=== PATIENT | male | born 1980 | race Two or more races ===

== ENCOUNTER 2019-04-13 02:27 | Emergency (ER) | payer MEDICAID, OTHER ==
[~2019-04-13] VITALS: Ht 180.3 cm; Wt 97.5 kg
[~2019-04-13 02:27] MED LIST: ALBUPOW26
[2019-04-13] MEDS ORDERED: DILTIAZEM HCL 60 MG TAB PO ONE (04:15)
[2019-04-13] MEDS ORDERED: DILTIAZEM HCL 25 MG/5 ML VIAL IV ONE (04:15)
[2019-04-13] MEDS ORDERED: DILTIAZEM 125mg/125ml BAG KIT 100 ML IV SCH (05:02)
[2019-04-13] MEDS ORDERED: DILTIAZEM 125mg/125ml BAG KIT 125 ML IV ONE (05:12)
[2019-04-13 05:21] LABS: Albumin 4.1 g/dL (3.4-5.0); Anion Gap 13 (5-15); Blood Urea Nitrogen 12 mg/dL (7-18); Calcium 8.9 mg/dL (8.5-10.1); Carbon Dioxide 20 mmol/L (21-32); Chloride 105 mmol/L (98-107); Glucose 286 mg/dL (74-106); Sodium 138 mmol/L (136-145)
[2019-04-13 05:25] LABS: Urine Bacteria None Seen /hpf (None Seen); Urine WBC None Seen /hpf (0 - 3)
[2019-04-13 05:29] LABS: Alanine Aminotransferase 95 U/L (16-61); Alkaline Phosphatase 117 U/L (45-117); Aspartate Aminotransferase 59 U/L (15-37); Bilirubin, Total 0.4 mg/dL (0.2-1.0); GFR African American 140 mL/min; GFR Non-African American 116 mL/min; Total Protein 8.5 g/dL (6.4-8.2)
[2019-04-13 05:34] LABS: Eosinophils # (auto) 0.9 uL; Monocytes # (auto) 0.7 uL; Neutrophils # (auto) 2.4 uL
[2019-04-13 05:35] LABS: Basophils # (auto) 0.2 uL; Basophils % (auto) 2.2 % (0.0-2.0); Eosinophils % (auto) 10.7 % (0.0-7.0); Hematocrit 50.5 % (41.0-53.0); Hemoglobin 17.7 g/dL (13.5-17.5); Lymphocytes # (auto) 4.2 uL; Lymphocytes % (auto) 50.3 % (10.0-50.0); Mean Corpuscular Hemoglobin 33.2 pg (28.0-32.0); Mean Corpuscular Volume 94.9 fL (80.0-100.0); Monocytes % (auto) 7.9 % (0.0-12.0); Neutrophils % (auto) 28.9 % (37.0-80.0); Nucleated Red Blood Cells % 0.2 %; Platelet Count (auto) 372 10^3/uL (140-450); Red Blood Cells 5.32 10^6/uL (4.5-5.90); Red Cell Distribution Width 12.8 % (11.8-14.3); White Blood Cell 8.3 10^3/uL (4.4-10.8)
[2019-04-13 05:39] LABS: Urine Specific Gravity 1.015 (1.001-1.035)
[2019-04-13 05:40] LABS: Urine Blood Normal /uL (Negative)
[2019-04-13 11:35] VITALS: BP 153/87
[2019-04-13] MEDS ORDERED: DILTIAZEM HCL 50 MG/10 ML VIAL IV ONE (12:05)
== END 2019-04-13 11:58 | disposition short-term general hospital (02) ==
LOC: ER 02:27
DX: I48.91 Unspecified atrial fibrillation (principal); E11.9 Type 2 diabetes mellitus without complications; J45.909 Unspecified asthma, uncomplicated
CPT/HCPCS: 36415; 71045; 80053; 81001; 82962; 83880; 84484; 85025; 92960; 93005; 96365; 96366; 96376

== ENCOUNTER 2024-02-23 07:10 | Inpatient (IN) | payer MEDICAID ==
[~2024-02-23] VITALS: Ht 172.7 cm; Wt 86.3 kg
[~2024-02-23 07:10] MED LIST changes: +ALBU108A5 INH; +BUDE1AER16 INH; +DULO1CAP5 PO; +EMPA1TAB3 PO; +HYDR1TAB97 PO; +LISI2.5T47 PO; +OMEP-448 PO; +PRE5T PO; +ROSU10TA64 PO
[2024-02-23] MEDS: AMIODARONE BOLUS KIT 100 ML IV ONE (07:45)
[2024-02-23] MEDS: AMIODARONE 450mg/250ml AE 250 ML IV SCH (07:45)
--- NOTE | 2024-02-23 07:49 | ED.PDOC ---
GI ASSESSMENT HPI Comments 44M BIBA w/ no prior Hx associated to the c/c of ABD pain. Pt reports on having epigastric pain which radiate to the LUQ/RUQ since, 0300. Pt states as well as being unable to take a deep breathe as well. Pt notes that he has been constipated for 3 days and has been having /D. PMHx of Asthma, DM and AFIB. Family Hx of DM, Heart Yon and HTN. Denies chills, fever, N/V, SOB, CP or other associated symptoms, modifiers, or recent injuries or sick contact at this time. 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, Medications, Allergies Allergies: Coded Allergies: NO KNOWN ALLERGIES (Unverified , 02/27/12) Home Meds Reported Medications Albuterol (Albuterol) Pow 02/27/12 Information Source: Patient Mode of Arrival: EMS Timing: Hours Duration: Since onset, Hours Prehospital treatment: None Quality: Aching Vomitus: None Stool: Loose Severity: Moderate Recent: None Recent Hx of: Diabetes Pain Location: Epigastric, RUQ, LUQ Associated sign and symptoms: Diarrhea, Constipation, Abdominal Pain Past Medical History PAST MEDICAL HISTORY: AFIB, Asthma, DM Surgical History: Denies all surgeries Family History Family History: Family hx of DM, Family hx of heart yon, Family hx of HTN Social History Smoker: Non-Smoker Alcohol: Denies ETOH Use Drugs: Denies Drug Use Lives In: Home Constitutional: denies: chills, diaphoresis, fatigue, fever, malaise, sweats, weakness, others EENTM: denies: blurred vision, double vision, ear bleeding, ear discharge, ear drainage, ear pain, ear ringing, eye pain, eye redness, hearing loss, mouth pain, mouth swelling, nasal discharge, nose bleeding, nose congestion, nose pain, photophobia, tearing, throat pain, throat swelling, voice changes, others Respiratory: denies: cough, hemoptysis, orthopnea, SOB at rest, shortness of breath, SOB with excertion, stridor, wheezing, others Cardiovascular: denies: chest pain, dizzy spells, diaphoresis, Dyspnea on exertion, edema, irregular heart beat, left arm pain, lightheadedness, palpitations, PND, syncope, others Gastrointestinal: reports: abdominal pain, constipated, diarrhea; denies: abdomen distended, blood streaked bowels, dysphagia, difficulty swallowing, hematemesis, melena, nausea, poor appetite, poor fluid intake, rectal bleeding, rectal pain, vomiting, others Genitourinary: denies: burning, dysuria, flank pain, frequency, hematuria, incontinence, penile discharge, penile sore, pain, testicle pain, testicle swelling, urgency, others Neurological: denies: dizziness, fainting, headache, left sided numbness, left sided weakness, numbness, paresthesia, pre-existing deficit, right sided numbness, right sided weakness, seizure, speech problems, tingling, tremors, weakness, others Musculoskeletal: denies: back pain, gout, joint pain, joint swelling, muscle pain, muscle stiffness, neck pain, others Integumetry: denies: bruises, change in color, change in hair/nails, dryness, laceration, lesions, lumps, rash, wounds, others Allergic/Immunocompromised: denies: Difficulty Healing, Frequent Infections, Hives, Itching, others Hematologic/Lymphatic: denies: anemia, blood clots, easy bleeding, easy bruising, swollen glands, others Endocrine: denies: excessive hunger, excessive sweating, excessive thirst, excessive urination, flushing, intolerance to cold, intolerance to heat, unexplained weight gain, unexplained weight loss, others Psychiatric: denies: anxiety, bipolar disorder, depression, hopeless, panic disorder, schizophrenia, sleepless, suicidal, others All Other Systems: Reviewed and Negative Physical Exam General Appearance: Moderate Distress, Normal HEENT: Normal ENT Inspection, Pharynx Normal, TMs Normal Neck: Full Range of Motion, Non-Tender, Normal, Normal Inspection Respiratory: Chest Non-Tender, Lungs Clear, No Accessory Muscle Use, No Respiratory Distress, Normal Breath Sounds Cardiovascular: Irregular, No Edema, No JVD, No Murmur, No Gallop, Normal Peripheral Pulses, Tachycardia Breast Exam: Deferred Gastrointestinal: No Organomegaly, Non Tender, No Pulsatile Mass, Normal Bowel Sounds, Soft Genitalia: Deferred Pelvic: Deferred Rectal: Deferred Extremities: No calf tenderness, Normal capillary refill, Normal inspection, Normal range of motion, Non-tender, No pedal edema Musculoskeletal : Apperance: Normal Neurologic: Alert, program coordinator executive education II-XII nml as Tested, No Motor Deficits, Normal Affect, Normal Mood, No Sensory Deficits Cerebellar Function: NOT DONE Reflexes: NOT DONE Skin: Dry, Normal Color, Warm Peripheral Pulses: 3+ Radial (R), 3+ Radial (L) Lymphatic: No Adenopathy Was a procedure done? Was a procedure done?: No GI differential Dx Differential Diagnosis: Diverticular disease, Esophagitis, Gastritis/PUD, Gastroenteritis X-Ray, Labs, Meds, VS Vital Signs Date Time Temp Pulse Resp B/P (MAP) Pulse Ox O2 Delivery O2 Flow Rate FiO2 02/23/24 08:43 113 17 136/89 02/23/24 08:37 114 02/23/24 08:13 116 22 125/88 02/23/24 07:13 98.9 120 24 124/84 (97) 100 Lab Test 02/23/24 09:20 02/23/24 08:22 Range/Units Lactic Acid Level 4.0 *H 0.4-2.0 mmol/L Troponin I High Sensitivity < 3 L < 3 L </=54 ng/L White Blood Count 22.7 H 4.4-10.8 10^3/uL Red Blood Count 6.53 H 4.5-5.90 10^6/uL Hemoglobin 20.4 H 13.5-17.5 g/dL Hematocrit 60.4 H 41.0-53.0 % Mean Corpuscular Volume 92.5 80.0-100.0 fL Mean Corpuscular Hemoglobin 31.3 28.0-32.0 pg Mean Corpuscular Hemoglobin Concent 33.8 32.0-36.0 g/dL Red Cell Distribution Width 14.0 11.8-14.3 % Platelet Count 326 140-450 10^3/uL Mean Platelet Volume 8.6 6.9-10.8 fL Neutrophils (%) (Auto) 84.4 H 37.0-80.0 % Lymphocytes (%) (Auto) 8.0 L 10.0-50.0 % Monocytes (%) (Auto) 6.0 0.0-12.0 % Eosinophils (%) (Auto) 1.4 0.0-7.0 % Basophils (%) (Auto) 0.2 0.0-2.0 % Neutrophils # (Auto) 19.2 H 1.6-8.6 10 ^3/uL Lymphocytes # (Auto) 1.8 0.4-5.4 10 ^3/uL Monocytes # (Auto) 1.4 H 0-1.3 10 ^3/uL Eosinophils # (Auto) 0.3 0-0.8 10 ^3/uL Basophils # (Auto) 0 0-0.2 10 ^3/uL Nucleated Red Blood Cells 0.1 % Sodium Level 137 136-145 mmol/L Potassium Level 3.9 3.5-5.1 mmol/L Chloride Level 101 98-107 mmol/L Carbon Dioxide Level 21 20-31 mmol/L Anion Gap 15 5-15 Blood Urea Nitrogen 12 9-23 mg/dL Creatinine 1.15 0.700-1.30 mg/dL Glomerular Filtration Rate Calc 81 >90 mL/min BUN/Creatinine Ratio 10.4 10.0-20.0 Serum Glucose 168 H 74-106 mg/dL Calcium Level 11.2 H 8.7-10.4 mg/dL Current Medications Medications (Trade) Dose Ordered Sig/Sarah Route Start Time Stop Time Status Last Admin Morphine Sulfate 4 mg ONCE ONCE IV 02/23/24 07:45 02/23/24 07:46 DC 02/23/24 08:13 Ondansetron HCl (Zofran) 4 mg ONCE ONCE IV 02/23/24 07:45 02/23/24 07:46 DC 02/23/24 08:13 Amiodarone HCl 250 ml @ 33.333 mls/ hr Q7H30M IV 02/23/24 07:45 02/23/24 13:44 02/23/24 07:45 Piperacillin Sod/ Tazobactam Sod 100 ml @ 100 mls/hr ONCE ONCE IV 02/23/24 09:15 02/23/24 10:14 DC 02/23/24 09:15 Metronidazole 100 ml @ 100 mls/hr ONCE ONCE IV 02/23/24 09:15 02/23/24 10:14 DC 02/23/24 09:15 Sodium Chloride 1,000 ml @ 1,000 mls/hr Q1H ONCE IV 02/23/24 10:15 02/23/24 11:14 02/23/24 10:16 Sodium Chloride 1,000 ml @ 150 mls/hr Q6H40M ONCE IV 02/23/24 10:15 02/23/24 16:54 02/23/24 10:16 Patient alert. Complaining of abdominal pain. Vitals stable. Answering questions. Tachycardia. Irregular RR interval. History of atrial fibrillation. Establish intravenous access. Was given fluids. Was given morphine. Was given Zofran. WBC elevated. Hemoglobin elevated. Sepsis. Unstable for transfer. Explained to the patient. Continue cardiac monitoring. [place] approved inpatient admission [id number]. Time of 1ST Reevaluation: 07:45 Reevaluation 1ST: Unchanged Patient Education/Counseling: Diagnosis, Treatment, Prognosis Family Education/Counseling: No Family Present Departure 1 Departure Time of Disposition: 09:01 Impression: Primary Impression: Acute abdominal pain Additional Impressions: Atrial fibrillation Qualified Codes: I48.91 - Unspecified atrial fibrillation Sepsis Qualified Codes: A41.9 - Sepsis, unspecified organism Disposition: ADMITTED INPATIENT Admit to: Med Surg Condition: Guarded Critical Care Note Critical Care Time?: Yes (45 min-critical care time only) Stability Stability form required: No Heart Score Heart Score: Heart Score Response (Comments) Value History Slightly Suspicious 0 EKG Normal 0 Age <45 0 Risk Factors 1 or 2 risk factors 1 Troponin Normal limit 0 Total 1 I personally scribed for LIAN MELCHOR MD ([email or web address]) on 02/23/24 at 07:49. Electronically submitted by Conrad Juarez ([email or web address]). LIAN MELCHOR MD Feb 23, 2024 07:49
[2024-02-23] MEDS: ONDANSETRON HCL 4 MG/2 ML VIAL IV ONE (08:13)
[2024-02-23] MEDS: MORPHINE SULFATE 4 MG/ML SYR/VIAL IV ONE (08:13)
--- NOTE | 2024-02-23 08:39 | ECG ---
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
[2024-02-23 08:46] LABS: Basophils # (auto) 0 10 ^3/uL (0-0.2); Mean Corpuscular Hgb Conc. 33.8 g/dL (32.0-36.0)
[2024-02-23 08:47] LABS: Basophils % (auto) 0.2 % (0.0-2.0); Eosinophils # (auto) 0.3 10 ^3/uL (0-0.8); Eosinophils % (auto) 1.4 % (0.0-7.0); Hemoglobin 20.4 g/dL (13.5-17.5); Lymphocytes # (auto) 1.8 10 ^3/uL (0.4-5.4); Mean Corpuscular Hemoglobin 31.3 pg (28.0-32.0); Mean Corpuscular Volume 92.5 fL (80.0-100.0); Monocytes # (auto) 1.4 10 ^3/uL (0-1.3); Neutrophils # (auto) 19.2 10 ^3/uL (1.6-8.6); Neutrophils % (auto) 84.4 % (37.0-80.0); Nucleated Red Blood Cells % 0.1 %; Platelet Count (auto) 326 10^3/uL (140-450); Red Blood Cells 6.53 10^6/uL (4.5-5.90); White Blood Cell 22.7 10^3/uL (4.4-10.8)
[2024-02-23 08:58] LABS: Hematocrit 60.4 % (41.0-53.0)
[2024-02-23] MEDS: PIPERACILLIN-TAZOB 3.375GM 100 ML IV ONE (09:15)
[2024-02-23] MEDS: metroNIDAZOLE 500MG/100ML 100 ML IV ONE (09:15)
[2024-02-23 09:17] LABS: Chloride 101 mmol/L (98-107); Potassium 3.9 mmol/L (3.5-5.1); Sodium 137 mmol/L (136-145)
[2024-02-23 09:18] LABS: Anion Gap 15 (5-15); Calcium 11.2 mg/dL (8.7-10.4); Carbon Dioxide 21 mmol/L (20-31)
[2024-02-23 09:23] LABS: BUN/Creatinine Ratio 10.4 (10.0-20.0); Blood Urea Nitrogen 12 mg/dL (9-23); Glucose 168 mg/dL (74-106)
--- NOTE | 2024-02-23 09:58 | DVH ---
Procedure: CT CT AB PEL WO CON-NO ORAL OR IV 02/23/2024 09:06 AM Indication: Abdominal pain. Colitis versus appendicitis. Comparison Study: None available at time of dictation. Technique: Axial images were obtained and reformatted in coronal and sagittal planes. All CT scans at this medical facility are performed using dose modulation techniques as appropriate t o a performed exam including the following: Automated exposure control was utilized; adjustment of th e MA and/or KV according to patient size; and use of iterative reconstruction technique. CT Dose: CTDI volume is 18.41 mGy. Dose-length product is 968.93 mGy*cm FINDINGS: Lower Chest: Unremarkable. Hepatobiliary: Hepatomegaly and hepatic steatosis. Cholelithiasis. No gallbladder wall edema. No int rahepatic or extrahepatic ductal dilatation. Spleen: Unremarkable. Pancreas: Unremarkable. Adrenal Glands: Unremarkable. tract: The kidneys are normal in size bilaterally without hydronephrosis . A 2 mm nonobstructing s tone is seen midpole of the right kidney. Partially exophytic subcentimeter cyst arising from latera l cortex of the midpole of the left kidney that is incompletely evaluated in this unenhanced study. The urinary bladder is unremarkable. GI tract: The stomach is grossly normal in appearance. Fluid-filled nondistended small bowel loops th roughout the abdomen. No evidence of small bowel obstruction. The large bowel is unremarkable. The a ppendix is normal. Lymphatics: No mesenteric, retroperitoneal or periportal lymphadenopathy. Vasculature: The abdominal aorta is normal in in caliber. Pelvic Organs: Unremarkable Bones/soft tissues: No acute abnormality. Other: None. IMPRESSION: 1. No evidence of colitis or appendicitis. 2. Nondistended fluid-filled small bowel loops throughout the abdomen may represent ileus or gastroen teritis. 3. A 2 mm nonobstructive right renal stone is seen. 4. Subcentimeter left renal that is incompletely evaluated on this unenhanced study. 5. Cholelithiasis without cholecystitis. 6. Hepatic steatosis and hepatomegaly.
[2024-02-23 10:00] VITALS: PULSE 113; RESP 19; O2SAT 95
[2024-02-23] MEDS: SODIUM CHLORIDE 0.9% 1,000 ML IV ONE ×3 (10:16→14:00)
[2024-02-23] MEDS ORDERED: ONDANSETRON HCL 4 MG/2 ML VIAL IV PRN (14:00)
[2024-02-23] MEDS ORDERED: DOCUSATE SOD 100 MG CAP PO PRN (14:00)
[2024-02-23] MEDS ORDERED: TEMAZEPAM 15 MG CAP PO PRN (14:00)
[2024-02-23] MEDS ORDERED: ALBUTEROL SULF 2.5 MG/0.5ML(0.5%) NEB SOLN NEB PRN (14:00)
[2024-02-23] MEDS ORDERED: LORazepam 0.5 MG TAB PO PRN (14:00)
[2024-02-23] MEDS ORDERED: HYDROcodone-ACET 5/325MG TAB PO PRN (14:00)
[2024-02-23] MEDS ORDERED: DEXTROSE (50%) 50ML SYRG IV PRN (14:00)
[2024-02-23 14:21] LABS: Urine Bacteria None Seen /hpf (None Seen)
[2024-02-23 14:36] LABS: Urine Blood Negative /uL (Negative); Urine Clarity Clear (Clear); Urine Color Yellow (Yellow); Urine Protein, UAD Negative (Negative); Urine Specific Gravity 1.043 (1.001-1.035); Urine Urobilinogen 4 mg/dL (Negative); Urine WBC 1 /hpf (0 - 3)
--- NOTE | 2024-02-23 14:39 | DVHHP2 ---
History of Present Illness Reason for Visit: Abdominal pain History of Present Illness 44 yo obese male afib, dm, htn , asthma comes with constipation abdominal pain and fevers patient has been sick for a few days got to the point where he had extreme weakness and couldnt tolerate it and manage at home at the ed patient was shown to have fevers pain dehydration and signs of constipation patient with elevated white count and acute signs of infection for admission and further evaluation Cardiovascular: AFIB, HTN GI: Constipation Renal/: UTI Endocrine: Diabetes Review of Systems Constitutional: Yes: Fever, Weakness, Malaise; No: Chills, Sweats, Other Eyes: No: Pain, Vision change, Conjunctivae inflammation, Eyelid inflammation, Other, Redness ENT: No: Ear pain, Ear discharge, Nose pain, Nose discharge, Nose congestion, Mouth pain, Mouth swelling, Throat pain, Throat swelling, Other Respiratory: No: Cough, Dry, Shortness of breath, SOB with excertion, Wheezing, Hemoptysis, Pleuritic Pain, Sputum, Wheezing, Other Cardiovascular: No: Chest Pain, Palpitations, Orthopnea, Paroxysmal Noc. Dyspnea, Edema, Lt Headedness, Other Gastrointestinal: Nausea, Vomiting, Abdominal Pain, Constipation; No: Diarrhea, Melena, Hematochezia, Other Genitourinary: No Dysuria, No Frequency, No Incontinence, No Hematuria, No Retention, No Other Musculoskeletal: No: other, neck pain, shoulder pain, arm pain, back pain, hand pain, leg pain, foot pain Skin: No: Rash, Lesions, Jaundice, Bruising, Other Neurological: No: Weakness, Numbness, Incoordination, Change in speech, Confusion, Seizures, Other Allergies: Coded Allergies: NO KNOWN ALLERGIES (Unverified , 02/27/12) Medications Current Medications Medications Dose Ordered Sig/Sarah Route Start Time Stop Time Status Last Admin Dose Admin Piperacillin Sod/ Tazobactam Sod 100 ml @ 25 mls/hr Q8H IV 02/23/24 17:00 Ondansetron HCl 4 mg Q6HPRN PRN IV 02/23/24 14:00 UNV Diagnostic Test (Pha) 1 strip ACHS 02/23/24 17:00 Insulin Human Regular HS SC 02/23/24 22:00 Insulin Human Regular AC SC 02/23/24 17:00 Dextrose 50 ml UD PRN IV 02/23/24 14:00 Albuterol 2.5 mg Q4HWA PRN NEB 02/23/24 14:00 Lorazepam 0.5 mg Q6HP PRN PO 02/23/24 14:00 Docusate Sodium 100 mg BIDPRN PRN PO 02/23/24 14:00 Acetaminophen 650 mg Q6HP PRN PO 02/23/24 14:00 Temazepam 15 mg QHSP PRN PO 02/23/24 14:00 Acetaminophen/ Hydrocodone Bitart 1 tab Q4HP PRN PO 02/23/24 14:00 Ondansetron HCl 4 mg Q4HP PRN IV 02/23/24 14:00 UNV Morphine Sulfate 2 mg Q4HPRN PRN IV 02/23/24 14:00 Lactulose 30 ml Q8HR PO 02/23/24 22:00 UNV Exam Vital Signs Vital Signs Date Time Temp Pulse Resp B/P (MAP) Pulse Ox O2 Delivery O2 Flow Rate FiO2 02/23/24 08:43 113 17 136/89 02/23/24 07:13 98.9 100 General Appearance: Alert, Oriented X3, Cooperative HEENT: Atraumatic, PERRLA Respiratory: Clear to auscultation, Normal air movement Cardiovascular: Regular rate, Normal S1, Normal S2 Abdominal: Other (bowel distrention tenderness ttp ) Extremities: No clubbing, No cyanosis Skin: No rashes, No breakdown, No significant lesion Neuro: Normal gait, Normal speech Labs/Xrays Labs Test 02/23/24 14:17 02/23/24 11:40 02/23/24 09:20 02/23/24 08:22 Range/Units Lactic Acid Level 3.3 *H 0.4-2.0 mmol/L Troponin I High Sensitivity < 3 L </=54 ng/L White Blood Count 22.7 H 4.4-10.8 10^3/uL Red Blood Count 6.53 H 4.5-5.90 10^6/uL Hemoglobin 20.4 H 13.5-17.5 g/dL Hematocrit 60.4 H 41.0-53.0 % Mean Corpuscular Volume 92.5 80.0-100.0 fL Mean Corpuscular Hemoglobin 31.3 28.0-32.0 pg Mean Corpuscular Hemoglobin Concent 33.8 32.0-36.0 g/dL Red Cell Distribution Width 14.0 11.8-14.3 % Platelet Count 326 140-450 10^3/uL Mean Platelet Volume 8.6 6.9-10.8 fL Neutrophils (%) (Auto) 84.4 H 37.0-80.0 % Lymphocytes (%) (Auto) 8.0 L 10.0-50.0 % Monocytes (%) (Auto) 6.0 0.0-12.0 % Eosinophils (%) (Auto) 1.4 0.0-7.0 % Basophils (%) (Auto) 0.2 0.0-2.0 % Neutrophils # (Auto) 19.2 H 1.6-8.6 10 ^3/uL Lymphocytes # (Auto) 1.8 0.4-5.4 10 ^3/uL Monocytes # (Auto) 1.4 H 0-1.3 10 ^3/uL Eosinophils # (Auto) 0.3 0-0.8 10 ^3/uL Basophils # (Auto) 0 0-0.2 10 ^3/uL Nucleated Red Blood Cells 0.1 % Sodium Level 137 136-145 mmol/L Potassium Level 3.9 3.5-5.1 mmol/L Chloride Level 101 98-107 mmol/L Carbon Dioxide Level 21 20-31 mmol/L Anion Gap 15 5-15 Blood Urea Nitrogen 12 9-23 mg/dL Creatinine 1.15 0.700-1.30 mg/dL Glomerular Filtration Rate Calc 81 >90 mL/min BUN/Creatinine Ratio 10.4 10.0-20.0 Serum Glucose 168 H 74-106 mg/dL Calcium Level 11.2 H 8.7-10.4 mg/dL Assessment/Plan Assessment/Plan Admit to Tele Acute on chronic A-fib exacerbated in the setting in acute infection currently looking for rate control with amiodarone drip cardio consult if no improvement with improvement of infection Abdominal pain Gastroenteritis infectious suspected zosyn q8h IV abx monitor for improvement with WBC monitoring prn meds for pain family history of cancer in mother and father colonoscopy outpatient highly recommended lactic acid elevated monitor closely DM mild hyperglycemia iss while in patient takes Januvia at home Plan discussed with: Patient My Orders Orders - LEDA MARCUM MD Procedure Category Date Status Time Piperacillin-Tazob PHA 11/10/24 In Process 3.375gm (Zosyn 3.375g 17:00 Sodium Chloride 0.9% PHA 02/23/24 In Process 14:00 Ondansetron Hcl PHA 02/23/24 Logged (Zofran) 14:00 Glucose Blood PHA 02/23/24 In Process (Accu-Chek Comfort 17:00 Insulin R (Human) PHA 02/23/24 In Process (Insulin R) 22:00 Insulin R (Human) PHA 02/23/24 In Process (Insulin R) 17:00 Dextrose 50% Syringe PHA 02/23/24 In Process 14:00 Albuterol Medneb PHA 02/23/24 In Process (Ventolin Medneb) 14:00 Admit ADMIT 02/23/24 Transmitted 13:46 Code Status CODE 02/23/24 Transmitted 13:46 Vital Signs ARIELA 02/23/24 In Process 13:46 Review Orders With [facility] 02/23/24 In Process Adm. 13:46 Lorazepam Tablet PHA 02/23/24 In Process (Ativan Tablet) 14:00 Docusate Sodium PHA 02/23/24 In Process Capsule (Colace 14:00 Acetaminophen Tablet PHA 02/23/24 In Process (Tylenol Tablet) 14:00 Temazepam (Restoril) PHA 02/23/24 In Process 14:00 Notify Of Changes [facility] 02/23/24 In Process From Base 13:46 Advance Directive ARIELA 02/23/24 In Process 13:46 Basic Metabolic Panel LAB 02/24/24 Verified 04:00 Complete Blood Count LAB 02/24/24 Verified 04:00 Patient Condition ORDERS 02/23/24 Transmitted 13:46 Allergies ARIELA 02/23/24 In Process 13:46 Hydrocodone-Acet PHA 02/23/24 In Process 5/325mg Tab ([place] 14:00 Ondansetron Hcl PHA 02/23/24 Logged (Zofran) 14:00 Morphine Sulfate PHA 02/23/24 In Process Injection 14:00 Notifallyson Rey Of Changes [facility] 02/23/24 In Process From Base 13:46 Oxygen By Nasal RT 02/23/24 Transmitted Cannula 13:46 Lactulose Oral PHA 02/23/24 Logged 22:00 Problem List: (1) Atrial fibrillation (2) Acute abdominal pain (3) Sepsis Date of Service: Feb 23, 2024 Billing Provider: LEDA MARCUM MD Common Visit Codes: 91005-CAXOGYO INP/OBS CARE (HIGH) LEDA MARCUM MD Feb 23, 2024 14:39
[2024-02-23 14:46] VITALS: BP 122/83; PULSE 114; RESP 14; TEMP 98.9; O2SAT 95
[2024-02-23] MEDS: HYDROmorphone HCL 2 MG/ML VL/or syr IV PRN (16:03)
[2024-02-23] MEDS: ONDANSETRON HCL 4 MG/2 ML VIAL IV PRN (16:03)
[2024-02-23] MEDS: ACCU-CHEK COMFORT CURVE STRIP VI SCH (17:00)
[2024-02-23] MEDS: InsuLIN REG 1unit/0.01ml Soln (100units/ml) SC SCH ×2 (17:00→22:00)
[2024-02-23] MEDS: PIPERACILLIN-TAZOB 3.375GM 100 ML IV SCH (17:14)
[2024-02-23] MEDS: ACETAMINOPHEN 325 MG TAB PO PRN (17:35)
[2024-02-23 19:51] VITALS: O2SAT 96
[2024-02-23] MEDS: MORPHINE SULFATE INJ 2 MG/ml SYRG IV PRN (21:35)
[2024-02-23] MEDS: LACTULOSE 20Gm/30ML SOLN PO SCH (22:00)
[2024-02-23 22:34] VITALS: PULSE 101; RESP 13; O2SAT 95
[2024-02-24 05:43] LABS: Basophils # (auto) 0 10 ^3/uL (0-0.2); Basophils % (auto) 0.2 % (0.0-2.0); Eosinophils # (auto) 0.1 10 ^3/uL (0-0.8); Eosinophils % (auto) 0.8 % (0.0-7.0); Hematocrit 48.9 % (41.0-53.0); Hemoglobin 16.8 g/dL (13.5-17.5); Mean Corpuscular Hemoglobin 31.6 pg (28.0-32.0); Mean Corpuscular Hgb Conc. 34.4 g/dL (32.0-36.0); Monocytes # (auto) 1.1 10 ^3/uL (0-1.3); Monocytes % (auto) 10.4 % (0.0-12.0); Neutrophils # (auto) 8.1 10 ^3/uL (1.6-8.6); Neutrophils % (auto) 78.6 % (37.0-80.0); Platelet Count (auto) 223 10^3/uL (140-450); Red Blood Cells 5.31 10^6/uL (4.5-5.90); Red Cell Distribution Width 13.8 % (11.8-14.3); White Blood Cell 10.3 10^3/uL (4.4-10.8)
[2024-02-24 06:00] LABS: Anion Gap 8 (5-15); Calcium 9.3 mg/dL (8.7-10.4); Carbon Dioxide 24 mmol/L (20-31); Chloride 103 mmol/L (98-107); Potassium 3.9 mmol/L (3.5-5.1); Sodium 135 mmol/L (136-145)
[2024-02-24 06:06] LABS: BUN/Creatinine Ratio 21.8 (10.0-20.0); Blood Urea Nitrogen 19 mg/dL (9-23); Glucose 113 mg/dL (74-106)
[2024-02-24 06:14] VITALS: O2SAT 97
[2024-02-24 06:15] VITALS: O2SAT 97
[2024-02-24 09:40] VITALS: PULSE 90; RESP 14; TEMP 98.2; O2SAT 99
[2024-02-24 11:00] VITALS: BP 116/84; PULSE 87; RESP 17; O2SAT 99
[2024-02-24 15:15] LABS: Alanine Aminotransferase 45 U/L (7-40); Albumin 4.8 g/dL (3.2-4.8); Alkaline Phosphatase 63 U/L (46-116); Anion Gap 8 (5-15); Aspartate Aminotransferase 34 U/L (13-40); BUN/Creatinine Ratio 19.8 (10.0-20.0); Bilirubin, Total 1.7 mg/dL (0.2-1.0); Blood Urea Nitrogen 17 mg/dL (9-23); Calcium 9.7 mg/dL (8.7-10.4); Carbon Dioxide 25 mmol/L (20-31); Chloride 101 mmol/L (98-107); Glucose 105 mg/dL (74-106); Potassium 3.9 mmol/L (3.5-5.1); Sodium 134 mmol/L (136-145)
[2024-02-24] MEDS ORDERED: OMEP-411 (15:47)
--- NOTE | 2024-02-24 15:57 | DVHTS ---
Transfer Summary Transfer Summary Date of Admission Feb 23, 2024 at 13:46 Date of Transfer: Feb 24, 2024 Transfer Diagnosis Rule out sepsis Brief Hx & Hospital Course: History of Present Illness 44 yo obese male afib, dm, htn , asthma comes with constipation abdominal pain and fevers patient has been sick for a few days got to the point where he had extreme weakness and couldnt tolerate it and manage at home at the ed patient was shown to have fevers pain dehydration and signs of constipation patient with elevated white count and acute signs of infection for admission and further evaluation. Course of hospitalization: Patient was found to be in atrial fibrillation with rapid ventricular rate. Patient was placed on amiodarone drip protocol. Heart rate is now controlled in the 90s. Patient continues to have moderate abdominal pain, generalized with more pain noted to his right upper quadrant. Patient states that his nausea and vomiting has improved. Currently, denies having any fevers or chills. Also states that his diarrhea has improved. Given persistence of his abdominal pain and findings on CT scan, patient is not yet able to be discharged home. The patient was stable to be transferred to [facility] at this time given some improvement with the symptoms as well as being hemodynamically stable. Medication reconciliation was performed. Patient states that he does take Prad axa for his atrial fibrillation, which was not found on his medication reconciliation. Patient will be continued on antibiotic therapy with Zosyn at this time. He was agreeable to be transferred to [facility] if deemed necessary. Physical exam General: Alert and Oriented x3. No acute distress. Well-nourished. Obese Eyes: EOMI. Anicteric. HENT: Moist mucous membranes. Lungs: Clear to auscultation bilaterally. No accessory muscle use. Cardiovascular: Regular rate and rhythm. No murmur. No JVD. Paroxysmal atrial fibrillation Abdomen: Soft, non-tender and non-distended. No palpable masses. Extremities: No edema. Non-tender. Skin: No rashes or lesions. Warm. Neurologic: No focal neurological deficits. CN II-XII grossly intact, but not individually tested. Psychiatric: Cooperative. Appropriate mood and affect. Total time spent with patient discussing and formulating plan of care: 35 minutes. This medical document was created using an electronic medical record system with [employer] dictation system. Although this document has been carefully reviewed, there may still be some phonetic and typographical errors. These areas are purely typographical due to imperfections of the software programs, and do not reflect any compromise in the patient's medical care. Secondary diagnosis: -Atrial fibrillation with history of ablation -obesity -diabetes mellitus -primary hypertension -asthma -gastroenteritis -rule out sepsis Transfer to: [facility] Discharge Instructions: Continue current treatment plan per medication reconciliation form Transfer Status Stable Date of Service: Feb 24, 2024 Billing Provider: GHAZAL JAQUEZ NP Common Visit Codes: 23774-FEK/OBS DISCH DAY >30min GHAZAL JAQUEZ NP Feb 24, 2024 15:57
[2024-02-24] MEDS ORDERED: DULoxetine HCL 30 MG CAP PO SCH (22:00)
[2024-02-25] MEDS ORDERED: EMPAGLIFLOZIN 10 MG TAB PO SCH (10:00)
== END 2024-02-24 16:18 | disposition left against medical advice (07) | DRG 720 ==
LOC: ER 07:10 → EDBD 07:10 → TELE 13:46
PROVIDERS: ADMIT Hospitalist; ATTEND Hospitalist
DX: A41.9 Sepsis, unspecified organism (principal); I48.20 Chronic atrial fibrillation, unspecified; A09 Infectious gastroenteritis and colitis, unspecified; E11.65 Type 2 diabetes mellitus with hyperglycemia; E86.0 Dehydration; I10 Essential (primary) hypertension; K59.00 Constipation, unspecified; J45.909 Unspecified asthma, uncomplicated; N39.0 Urinary tract infection, site not specified; Z53.29 Procedure and treatment not carried out because of patient's decision for other reasons; Z82.49 Family history of ischemic heart disease and other diseases of the circulatory system; Z83.3 Family history of diabetes mellitus; E66.9 Obesity, unspecified; Z68.28 Body mass index [BMI] 28.0-28.9, adult
CPT/HCPCS: 36415; 74176; 80048; 80053; 81001; 82962; 83036; 83605; 84484; 85025; 87040; 93005; 99291; G0378; J2405; J2543; J3490